=== PATIENT | female | born 1995 | race Caucasian/White ===

== ENCOUNTER 2017-06-19 13:18 | Emergency (ER) | payer OTHER ==
[~2017-06-19] VITALS: Ht 165.1 cm; Wt 63.6 kg
[~2017-06-19 13:18] MED LIST: BIRTH CONTROL PILLS
[2017-06-19 14:47] LABS: BASO % 0.3 % (0.0-2.0); GRAN # 11.1 (1.4-6.5); GRAN % 86.3 % (42.2-75.2); HEMATOCRIT 43.8 % (37.0-47.0); LYMPH % 7.5 % (20.0-51.0); MEAN CELL VOLUME 84 fl (80.0-100.0); MEAN CORPUSCULAR HEMOGLOBIN 29 pg (27.0-31.0); MEAN CORPUSCULAR HGB CONC 34 g/dl (33.0-37.0); MEAN PLATELET VOLUME 9.7 fl (7.4-10.4); MONO # 0.7 (0.1-0.6); MONO % 5.6 % (1.7-9.3); PLATELET COUNT 201 K/mm3 (130-400); RED BLOOD COUNT 5.24 M/mm3 (4.10-5.30); REDCELL DISTRIBUTION WIDTH-CV 12.2 % (11.5-14.5); WHITE BLOOD COUNT 12.9 K/mm3 (4.8-10.8)
[2017-06-19 14:53] LABS: ADJUSTED CALCIUM 9.1 mg/dL (8.4-10.2); BILIRUBIN,TOTAL 0.9 mg/dL (0.0-1.0); CALCIUM 9.1 mg/dL (8.4-10.2); CREATININE, serum 0.96 mg/dL (0.52-1.25); POTASSIUM 3.7 mmol/L (3.4-5.0); TOTAL PROTEIN 7.2 gm/dL (6.4-8.2)
[2017-06-19 16:22] LABS: PH 5 (5-8); SQUAMOUS EPITHELIAL 0-2 /hpf; URINE APPEARANCE Clear; URINE BACTERIA Rare /hpf; URINE BILIRUBIN Negative (NEGATIVE); URINE BLOOD 2+ (NEGATIVE); URINE COLOR Straw; URINE GLUCOSE Negative (NEGATIVE); URINE KETONE 1+ (NEGATIVE); URINE UROBILINOGEN Negative (NEGATIVE)
[2017-06-19] MEDS ORDERED: ZOFRAN 4MG T4 MG/TAB PO (17:36)
[2017-06-19] MEDS ORDERED: OMNICEF 300MG300 MG PO (17:36)
[2017-06-19 18:21] VITALS: BP 119/67; PULSE 97; TEMP 101.1
== END 2017-06-19 18:30 | disposition home or self-care (01) ==
LOC: COL.ER 13:18
PROVIDERS: Emergency Medicine
DX: N12 Tubulo-interstitial nephritis, not specified as acute or chronic (principal)
CPT/HCPCS: J0696; J2405; J2550; J7030; Q9967

== ENCOUNTER 2018-07-19 12:46 | Day surgery (SDC) | payer BC ==
[~2018-07-19] VITALS: Ht 165.1 cm; Wt 57.7 kg
[2018-07-19] VITALS (7 sets, daily range): BP systolic 104–117; BP diastolic 57–74; PULSE 48–68; TEMP 98.2–98.5
[~2018-07-19 12:46] MED LIST changes: +OMNICEF 300MG300 MG PO; +ZOFRAN 4MG T4 MG/TAB PO
[2018-07-19 13:13] LABS: BASO % 0.2 % (0.0-2.0); GRAN # 16.5 (1.4-6.5); GRAN % 87.5 % (42.2-75.2); HEMOGLOBIN 14.7 g/dl (12.5-16.0); LYMPH % 5.3 % (20.0-51.0); MEAN CELL VOLUME 82 fl (80.0-100.0); MEAN CORPUSCULAR HEMOGLOBIN 29 pg (27.0-31.0); MEAN CORPUSCULAR HGB CONC 35 g/dl (33.0-37.0); MEAN PLATELET VOLUME 9.4 fl (7.4-10.4); MONO # 1.2 (0.1-0.6); MONO % 6.5 % (1.7-9.3); PLATELET COUNT 255 K/mm3 (130-400); RED BLOOD COUNT 5.12 M/mm3 (4.10-5.30); REDCELL DISTRIBUTION WIDTH-CV 11.7 % (11.5-14.5)
[2018-07-19] MEDS ORDERED: ORAL BIRTH CONTROL PO (13:16)
[2018-07-19 13:25] LABS: ALBUMIN 4.5 gm/dL (3.5-5.0); BILIRUBIN,TOTAL 0.7 mg/dL (0.0-1.0); C-REACTIVE PROTEIN 5.3 mg/dL (0.0-0.9); CALCIUM 9.3 mg/dL (8.4-10.2); CREATININE, serum 0.69 mg/dL (0.52-1.25); POTASSIUM 3.9 mmol/L (3.4-5.0)
[2018-07-19 14:39] LABS: COLLECTION METHOD CLEAN CATCH
[2018-07-19 14:46] LABS: MUCOUS Present /lpf; PH 5 (5-8); SQUAMOUS EPITHELIAL 0-2 /hpf; URINE APPEARANCE Clear; URINE BACTERIA None Seen /hpf; URINE BILIRUBIN Negative (NEGATIVE); URINE BLOOD Negative (NEGATIVE); URINE COLOR Yellow; URINE GLUCOSE Negative (NEGATIVE); URINE KETONE 1+ (NEGATIVE); URINE LEUKOCYTE ESTERASE Negative (NEGATIVE); URINE NITRATE Negative (NEGATIVE); URINE PROTEIN(semi-quant) Negative (NEGATIVE); URINE RBC 0-2 /hpf; URINE UROBILINOGEN Negative (NEGATIVE)
[2018-07-20 04:02] VITALS: BP 104/41; PULSE 46; TEMP 98.3
[2018-07-20 08:08] VITALS: BP 117/69; PULSE 98; TEMP 98.2
[2018-07-20 11:37] VITALS: BP 119/67; PULSE 54; TEMP 97.9
== END 2018-07-20 13:28 | disposition home or self-care (01) ==
LOC: COL.ER 12:46 → SDCO 14:40 → SURG 14:40 → SDCO 07-20 13:28
PROVIDERS: Nurse Practitioner
DX: K35.80 Unspecified acute appendicitis (principal)
CPT/HCPCS: OP; J1100; J1885; J2250; J2270; J2405; J2543; J2704; J2710; J2765; J3010; J7030; J7120; Q9967